=== PATIENT | male | born 1955 | race Two or more races ===

== ENCOUNTER 2023-09-20 16:37 | Emergency (ER) | payer SELFPAY ==
[~2023-09-20] VITALS: Ht 177.8 cm; Wt 107.0 kg
[2023-09-20 16:53] VITALS: BP 124/85; PULSE 78; RESP 15; TEMP 98.7; O2SAT 100
[2023-09-20 20:20] LABS: EOSINOPHILS % 2.3 % (0.0-5.0); HEMATOCRIT. 51.5 % (42.0-52.0); HEMOGLOBIN. 17.3 g/dL (14.0-18.0); LYMPHOCYTES % 42.8 % (20.0-50.0); MEAN CORPUSCULAR HEMOGLOBIN 30.7 pg (28.0-32.0); MEAN CORPUSCULAR HGB CONC 33.7 g/dL (31.0-37.0); MEAN CORPUSCULAR VOLUME 91.3 fL (80.0-94.0); MONOCYTES % 5.6 % (2.0-8.0); NEUTROPHILS % 48.3 % (40.0-76.0); RED BLOOD CELL COUNT 5.64 mill/uL (4.7-6.1); RED CELL DISTRIBUTION WIDTH 14.2 % (11.6-14.6); WHITE BLOOD COUNT 10.4 x1000/uL (4.5-11.0)
[2023-09-20 20:25] LABS: DIFFERENTIAL COMMENT 1
[2023-09-20 20:39] LABS: ALANINE AMINOTRANSFERASE 14 IU/L (10-49); ASPARTATE AMINOTRANSFERASE 18 IU/L (<34); BILIRUBIN TOTAL 0.4 mg/dL (0.1-1.0); CALCIUM 9.4 mg/dL (8.7-10.4); CARBON DIOXIDE 30 mEq/L (21-32); CHLORIDE 97 mEq/L (98-107); CREATININE 1.2 mg/dL (0.6-1.3); GLUCOSE 393 mg/dL (70-105); MEAN PLATELET VOLUME 8.9 fl (7.4-10.4); PLATELET 153 x1000/uL (130-400); POTASSIUM 4.1 mEq/L (3.5-5.1); PROTEIN TOTAL 7.6 g/dL (6.0-8.3); SODIUM 134 mEq/L (136-145); TROPONIN I HIGH SENSITIVITY 4 ng/L (3.0-53); UREA NITROGEN BLOOD 13 mg/dL (9-23)
== END 2023-09-20 22:44 | disposition home or self-care (01) ==
LOC: ER 16:37
DX: K29.70 Gastritis, unspecified, without bleeding (principal)
CPT/HCPCS: 36415; 71045; 80053; 83880; 84484; 85025; 93005; 99285

== ENCOUNTER 2023-11-10 15:55 | Emergency (ER) | payer BC ==
[~2023-11-10] VITALS: Ht 175.3 cm; Wt 90.0 kg
[2023-11-10 16:05] VITALS: TEMP 97.9; O2SAT 98
[2023-11-10] MEDS ORDERED: CEPH500T MT (16:34)
[2023-11-10 17:21] VITALS: BP 138/82; PULSE 78; RESP 16
== END 2023-11-10 22:12 | disposition home or self-care (01) ==
LOC: ER 15:55
DX: L02.411 Cutaneous abscess of right axilla (principal); E11.9 Type 2 diabetes mellitus without complications; I10 Essential (primary) hypertension; F17.200 Nicotine dependence, unspecified, uncomplicated
CPT/HCPCS: 10060; 99284